=== PATIENT | male | born 1940 | race Hispanic/Latino ===

== ENCOUNTER 2018-10-05 11:14 | Inpatient (IN) | payer OTHER ==
[2018-10-05] MEDS ORDERED: MORPHINE 2 MG/ML SYR ONE (13:43)
[2018-10-05] MEDS ORDERED: ONDANSETRON 4 MG/2 ML VIAL ONE ×2 (13:43→15:36)
[2018-10-05] MEDS ORDERED: NA CHLORIDE 0.9% 500 ML ONE (13:43)
[2018-10-05 13:53] LABS: Absolute Lymphocytes (CBC) 1.1 K/uL (0.7-4.9); Absolute Monocytes 0.9 K/uL (0.1-1.3); Absolute Neutrophil 5.5 K/uL (1.8-8.0); Basophils % 0.4 % (0-1.3); Eosinophils % 3.5 % (0-4.4); Hematocrit 41.4 % (39.6-49.0); Lymphocytes % 14.4 % (15.3-44.8); MPV 8.8 fL (7.6-11.3); Monocytes % 11.5 % (3.3-12.3); RBC Red Blood Cell Count 4.81 M/uL (4.33-5.43)
[2018-10-05 14:11] LABS: Albumin 3.5 g/dL (3.4-5.0); Bilirubin Direct 0.2 mg/dL (0-0.2); Bilirubin Total 0.5 mg/dL (0.2-1.0); Magnesium 2.3 mg/dL (1.8-2.4); Potassium 4.4 mmol/L (3.5-5.1); Protein, Total 7.4 g/dL (6.4-8.2)
[2018-10-05 14:12] LABS: Urine Bacteria <20 /HPF (NONE SEEN); Urine RBC <5 /HPF (NONE SEEN)
[2018-10-05 14:13] LABS: Urine Culture Reflex Order NOT NEEDED
[2018-10-05 14:32] LABS: Urine Blood NEGATIVE (NEG); Urine Glucose NEGATIVE (NEG); Urine Protein NEGATIVE (NEG); Urine Specific Gravity 1.015 (1.005-1.030)
[2018-10-05] MEDS ORDERED: MORPHINE 4 MG/ML SYR ONE ×2 (15:36→19:28)
--- NOTE | 2018-10-05 16:15 | RAD REPORT ---
EXAM DESCRIPTION: CTAbdomen Pelvis W Contrast - 10/05/2018 3:49 pm CLINICAL HISTORY: Abdominal pain. LLQ abdomen pain COMPARISON: CT ABD PELVIS W CONTRAST dated 12/05/2014; Abdomen Pelvis W/Wo Contrast dated 07/06/2016; Multiplanar Reconstruction dated 07/06/2016 TECHNIQUE: Biphasic CT imaging of the abdomen and pelvis was performed with 100 ml non-ionic IV cont rast. All CT scans are performed using dose optimization technique as appropriate and may include automated exposure control or mA/KV adjustment according to patient size. FINDINGS: The lung bases are clear. Diffuse low-density lesions are seen throughout the liver parenchyma most compatible with liver metas tatic disease. No intrahepatic or extrahepatic biliary tree dilatation seen. The spleen, adrenal glands, pancreas are within normal limits. Mild hydronephrosis of both kidneys se en with a urinary diversion present in right abdominal urostomy. Very advanced pattern of diverticulosis affects the rectosigmoid colon. Several small pericolonic sof t tissue lesions are present in the left lower quadrant the largest measuring 9 mm. These may represe nt a pericolonic lymph nodes. No diverticulitis is seen. Moderate fecal retention in the colon is pre sent. The appendix is normal. No suspicious bony findings. IMPRESSION: Diffuse metastatic disease to the liver is present. A few small pericolonic lymph nodes are also present in the left lower quadrant adjacent to the sigmoid colon where very advanced diverti culosis is present. Followup colonoscopy would be suggested to better assess this region of the colon . Mild hydronephrosis bilaterally with urinary diversion seen.
[2018-10-05] MEDS ORDERED: METRONIDAZOLE 500mg IVPB 500 MG/100 ML BAG IV ONE (17:25)
--- NOTE | 2018-10-05 19:27 | EDPHYS ---
Physician Documentation [facility] Name: Milan Sutton Age: 78 yrs Sex: Male : 1940 Arrival Date: 10/05/2018 Time: 11:15 Bed 23 Private MD: Pk Manning T ED Physician Scott Bro HPI: 10/05 13:25 This 78 yrs old Male presents to ER via Ambulatory with complaints of cp Abdominal Pain. 13:25 The patient presents with abdominal pain in the left lower quadrant. Onset: The cp symptoms/episode began/occurred 3 week(s) ago. The symptoms do not radiate. Associated signs and symptoms: Pertinent positives: constipation, nausea, Pertinent negatives: chest pain, diarrhea, dysuria, fever, shortness of breath, testicular pain, vomiting. The symptoms are described as waxing/waning. The patient has been recently seen by a physician: the patient's primary care provider, with similar presenting complaints, was given a prescription for antibiotics. Historical: - Allergies: 11:47 No Known Allergies; aa5 - Home Meds: 11:47 Bystolic 5 mg oral tab 1 tab once daily [Active]; Cefuroxime Oral 500 mg twice a day aa5 [Active]; losartan 100 mg oral tab 1 tab once daily [Active]; pravastatin 40 mg oral tab once daily [Active]; quetiapine 25 mg oral tab at bedtime [Active]; aspirin 81 mg Oral chew 1 tab once daily [Active]; - PMHx: 11:47 Hyperlipidemia; Hypertension; Cancer; aa5 - PSHx: 11:43 Hernia repair; aa5 11:47 Bladder and prostate removed; Urostomy; aa5 - Immunization history:: Adult Immunizations unknown. - Social history:: Smoking status: Patient/guardian denies using tobacco. - Ebola Screening: : No symptoms or risks identified at this time. ROS: 13:30 Constitutional: Negative for body aches, chills, fever, poor PO intake. cp 13:30 Eyes: Negative for injury, pain, redness, and discharge. cp 13:30 ENT: Negative for drainage from ear(s), ear pain, sore throat, difficulty swallowing, difficulty handling secretions. 13:30 Cardiovascular: Negative for chest pain, edema, palpitations. 13:30 Respiratory: Negative for cough, shortness of breath, wheezing. 13:30 Abdomen/GI: Positive for abdominal pain, nausea, Negative for vomiting, diarrhea, constipation, anorexia, black/tarry stool, rectal bleeding. 13:30 Back: Negative for pain at rest, pain with movement, radiated pain. 13:30 : Negative for hematuria, testicular pain 13:30 Skin: Negative for cellulitis, rash. 13:30 Neuro: Negative for altered mental status, headache, weakness. 13:30 All other systems are negative. Exam: 13:40 Constitutional: The patient appears in no acute distress, alert, awake, cp non-diaphoretic, non-toxic, well developed, well nourished, uncomfortable. 13:40 Head/Face: Normocephalic, atraumatic. cp 13:40 Eyes: Periorbital structures: appear normal, Conjunctiva: normal, no exudate, no injection, Sclera: no appreciated abnormality, Lids and lashes: appear normal, bilaterally. 13:40 ENT: External ear(s): are unremarkable, Nose: is normal, Mouth: Lips: moist, Oral mucosa: pink and intact, moist, Posterior pharynx: is normal, airway is patent, no erythema, no exudate. 13:40 Neck: ROM/movement: is normal, is supple, without pain, no range of motions limitations, no meningismus, no nuchal rigidity. 13:40 Chest/axilla: Inspection: normal, Palpation: is normal, no crepitus, no tenderness. 13:40 Cardiovascular: Rate: normal, Rhythm: regular, Edema: is not appreciated, JVD: is not appreciated. 13:40 Respiratory: the patient does not display signs of respiratory distress, Respirations: normal, no use of accessory muscles, no retractions, no splinting, no tachypnea, labored breathing, is not present, Breath sounds: are clear throughout, no decreased breath sounds, no stridor, no wheezing. 13:40 Abdomen/GI: Inspection: abdomen appears normal, Bowel sounds: active, all quadrants, Palpation: soft, in all quadrants, moderate abdominal tenderness, in the left lower quadrant, rebound tenderness, is not appreciated, voluntary guarding, is not appreciated, involuntary guarding, is not appreciated. 13:40 Back: pain, is absent, ROM is normal. 13:40 Skin: cellulitis, is not appreciated, no rash present. 13:40 Neuro: Orientation: to person, place \T\ time. Mentation: is normal, Cerebellar function: is grossly normal, Motor: moves all fours, strength is normal, Sensation: is normal. Vital Signs: 11:48 BP 167 / 77; Pulse 56; Resp 16 S; Temp 98.8(O); Pulse Ox 97% on R/A; Weight 81.65 kg aa5 (R); Height 5 ft. 11 in. (180.34 cm) (R); Pain 3/10; 13:00 BP 193 / 89; Pulse 60; Resp 18; Pulse Ox 97% on R/A; aj1 14:00 BP 189 / 82; Pulse 59; Resp 18; Pulse Ox 98% on R/A; aj1 15:02 BP 185 / 74; Pulse 56; Resp 18; Pulse Ox 96% on R/A; aj1 16:03 BP 184 / 79; Pulse 65; Resp 18; Pulse Ox 96% on R/A; aj1 17:05 BP 174 / 79; Pulse 63; Resp 18; Pulse Ox 97% on R/A; aj1 18:08 BP 164 / 79; Pulse 66; Resp 18; Pulse Ox 97% on R/A; aj1 20:06 BP 168 / 65; Pulse 65; Resp 18; Pulse Ox 97% on R/A; aj1 22:03 BP 164 / 58; Pulse 72; Resp 20; Pulse Ox 97% on R/A; aj1 11:48 Body Mass Index 25.10 (81.65 kg, 180.34 cm) aa5 MDM: 12:59 Patient medically screened. cp 17:10 Physician consultation: Juany Mcarthur MD was contacted at 17:05, regarding admission, cp to the medical/surgical unit. patient's condition, would like further tests performed, procalcitonin and CRp level before considering admission. 17:10 Response to treatment: the patient's symptoms have mildly improved after treatment. cp 19:30 Data reviewed: vital signs, nurses notes. cp 10/05 13:17 Order name: Basic Metabolic Panel; Complete Time: 15:25 cp 10/05 15:25 Interpretation: Normal except: GFR 77. cp 10/05 13:17 Order name: CBC with Diff; Complete Time: 15:25 cp 10/05 13:17 Order name: Creatinine for Radiology; Complete Time: 15:25 cp 10/05 13:17 Order name: Hepatic Function; Complete Time: 15:25 cp 10/05 13:17 Order name: Lipase; Complete Time: 15:25 cp 10/05 13:17 Order name: Urine Microscopic Only; Complete Time: 15:25 cp 10/05 13:17 Order name: Magnesium; Complete Time: 15:25 cp 10/05 13:28 Order name: CT Abd/Pelvis - W/Contrast: give oral contrast; Complete Time: 16:21 cp 10/05 13:59 Order name: Urine Dipstick--Ancillary (enter results); Complete Time: 15:25 eb 10/05 17:07 Order name: Procalcitonin; Complete Time: 19:29 cp 10/05 19:29 Interpretation: Reviewed. cp 10/05 17:07 Order name: CRP; Complete Time: 19:22 cp 10/05 19:22 Interpretation: Abnormal: C-REACTIVE PROT 31.30. cp 10/05 20:41 Order name: Lipase EDMS 10/05 20:41 Order name: Lipase EDMS 10/05 13:17 Order name: IV Saline Lock; Complete Time: 13:48 cp 10/05 13:17 Order name: Labs collected and sent; Complete Time: 13:48 cp 10/05 13:17 Order name: Urine Dipstick-Ancillary (obtain specimen); Complete Time: 13:53 cp 10/05 20:40 Order name: NPO EDMS Administered Medications: 13:48 Drug: NS 0.9% 500 ml Route: IV; Rate: bolus; Site: right antecubital; aj1 14:30 Follow up: IV Status: Completed infusion; IV Intake: 500ml aj1 13:48 Drug: morphine 2 mg Route: IVP; Site: right antecubital; aj1 14:30 Follow up: Response: No adverse reaction aj1 13:48 Drug: Zofran 4 mg Route: IVP; Site: right antecubital; aj1 14:30 Follow up: Response: No adverse reaction aj1 17:25 Drug: metroNIDAZOLE 500 mg Volume: 100 ml; Route: IVPB; Infused Over: 30 mins; Site: mg2 right antecubital; 19:52 Follow up: IV Status: Completed infusion; IV Intake: 100ml aj1 19:31 Drug: morphine 4 mg Route: IVP; Site: right antecubital; aj1 22:05 Follow up: Response: No adverse reaction [facility] 19:52 Drug: Cipro 400 mg Volume: 200 ml; Route: IVPB; Infused Over: 60 mins; Site: left aj1 antecubital; 22:04 Follow up: IV Status: Completed infusion; IV Intake: 200ml aj Disposition: 10/06 09:21 Co-signature as Attending Physician, Scott Bro MD I agree with the assessment and carley plan of care. Disposition: 10/05/18 19:26 Hospitalization ordered by Rm Mast for Observation. Preliminary diagnosis are Lower abdominal pain, unspecified, Diverticulosis of large intestine without perforation or abscess without bleeding. - Bed requested for Telemetry/MedSurg (observation). - Status is Observation. aj1 - Condition is Stable. - Problem is an ongoing problem. - Symptoms have improved. UTI on Admission? No Signatures: Dispatcher [employer] EDPhuong Hermosillo RN RN aj1 Sarina Catalan RN RN mw Anderson, Corey, MD MD cha Calderon, Audri RN RN aa5 Scott May PA PA cp Gardose, Michele, RN RN mg2 Corrections: (The following items were deleted from the chart) 10/05 20:52 19:26 Hospitalization Ordered by Rm Mast MD for Observation. Preliminary diagnosis is Lower abdominal pain, unspecified; Diverticulosis of large intestine without perforation or abscess without bleeding. Bed requested for Telemetry/MedSurg (observation). Status is Observation. Condition is Stable. Problem is an ongoing problem. Symptoms have improved. UTI on Admission? No. cp 22:49 20:52 10/05/2018 19:26 Hospitalization Ordered by Rm Mast MD for Observation. aj1 Preliminary diagnosis is Lower abdominal pain, unspecified; Diverticulosis of large intestine without perforation or abscess without bleeding. Bed requested for Telemetry/MedSurg (observation). Status is Observation. Condition is Stable. Problem is an ongoing problem. Symptoms have improved. UTI on Admission? No. mw
--- NOTE | 2018-10-05 19:27 | ER ---
Nurse's Notes [facility] Name: Milan Sutton Age: 78 yrs Sex: Male : 1940 Arrival Date: 10/05/2018 Time: 11:15 Bed 23 Private MD: Pk Manning T Diagnosis: Lower abdominal pain, unspecified;Diverticulosis of large intestine without perforation or abscess without bleeding Presentation: 10/05 11:42 Presenting complaint: Patient states: LLQ pain that began x 2 weeks ago. Pt states "I aa5 went to go see Dr. Manning and he gave me antibiotics but it's not helping". Pt states feeling bloated. Transition of care: patient was not received from another setting of care. Onset of symptoms was September 2018. Risk Assessment: Do you want to hurt yourself or someone else? Patient reports no desire to harm self or others. Initial Sepsis Screen: Does the patient meet any 2 criteria? No. Patient's initial sepsis screen is negative. Does the patient have a suspected source of infection? No. Patient's initial sepsis screen is negative. Care prior to arrival: None. 11:42 Method Of Arrival: Ambulatory aa5 11:42 Acuity: DEBRA 3 aa5 Historical: - Allergies: 11:47 No Known Allergies; aa5 - Home Meds: 11:47 Bystolic 5 mg oral tab 1 tab once daily [Active]; Cefuroxime Oral 500 mg twice a day aa5 [Active]; losartan 100 mg oral tab 1 tab once daily [Active]; pravastatin 40 mg oral tab once daily [Active]; quetiapine 25 mg oral tab at bedtime [Active]; aspirin 81 mg Oral chew 1 tab once daily [Active]; - PMHx: 11:47 Hyperlipidemia; Hypertension; Cancer; aa5 - PSHx: 11:43 Hernia repair; aa5 11:47 Bladder and prostate removed; Urostomy; aa5 - Immunization history:: Adult Immunizations unknown. - Social history:: Smoking status: Patient/guardian denies using tobacco. - Ebola Screening: : No symptoms or risks identified at this time. Screenin:00 Abuse screen: Denies threats or abuse. Denies injuries from another. Nutritional aj1 screening: No deficits noted. Tuberculosis screening: No symptoms or risk factors identified. 22:04 Fall Risk No fall in past 12 months (0 pts). No secondary diagnosis (0 pts). IV access aj1 (20 points). Ambulatory Aid- None/Bed Rest/Nurse Assist (0 pts). Gait- Normal/Bed Rest/Wheelchair (0 pts) Mental Status- Oriented to own ability (0 pts). Total Sanchez Fall Scale indicates No Risk (0-24 pts). Assessment: 13:00 General: Appears in no apparent distress. comfortable, Behavior is calm, cooperative, aj1 appropriate for age. Pain: Complains of pain in left inguinal area Pain does not radiate. Pain currently is 3 out of 10 on a pain scale. Pain began 2 weeks ago. Neuro: Level of Consciousness is awake, alert, obeys commands, Speech is normal. Cardiovascular: Patient's skin is warm and dry. Respiratory: Airway is patent Respiratory effort is even, unlabored, Respiratory pattern is regular, symmetrical. GI: Abdomen is flat, non-distended, Bowel sounds present X 4 quads. Abd is soft and non tender X 4 quads. : Denies burning with urination, urinary frequency. EENT: No signs and/or symptoms were reported regarding the EENT system. Derm: No signs and/or symptoms reported regarding the dermatologic system. Skin is pink, warm \\T\\ dry. normal. Musculoskeletal: No signs and/or symptoms reported regarding the musculoskeletal system. Circulation, motion, and sensation intact. 14:05 Reassessment: Patient appears in no apparent distress at this time. No changes from aj1 previously documented assessment. Patient and/or family updated on plan of care and expected duration. Pain level reassessed. Patient is alert, oriented x 3, equal unlabored respirations, skin warm/dry/pink. 15:02 Reassessment: Patient appears in no apparent distress at this time. No changes from aj1 previously documented assessment. Patient and/or family updated on plan of care and expected duration. Pain level reassessed. Patient is alert, oriented x 3, equal unlabored respirations, skin warm/dry/pink. 16:03 Reassessment: Patient appears in no apparent distress at this time. No changes from aj1 previously documented assessment. Patient and/or family updated on plan of care and expected duration. Pain level reassessed. Patient is alert, oriented x 3, equal unlabored respirations, skin warm/dry/pink. 17:05 Reassessment: Patient appears in no apparent distress at this time. No changes from aj1 previously documented assessment. Patient and/or family updated on plan of care and expected duration. Pain level reassessed. Patient is alert, oriented x 3, equal unlabored respirations, skin warm/dry/pink. 18:08 Reassessment: Patient appears in no apparent distress at this time. No changes from aj1 previously documented assessment. Patient and/or family updated on plan of care and expected duration. Pain level reassessed. Patient is alert, oriented x 3, equal unlabored respirations, skin warm/dry/pink. 19:10 Reassessment: Patient appears in no apparent distress at this time. No changes from aj1 previously documented assessment. Patient and/or family updated on plan of care and expected duration. Pain level reassessed. Patient is alert, oriented x 3, equal unlabored respirations, skin warm/dry/pink. 20:06 Reassessment: Patient appears in no apparent distress at this time. No changes from aj1 previously documented assessment. Patient and/or family updated on plan of care and expected duration. Pain level reassessed. Patient is alert, oriented x 3, equal unlabored respirations, skin warm/dry/pink. 21:00 Reassessment: Patient appears in no apparent distress at this time. No changes from aj1 previously documented assessment. Patient and/or family updated on plan of care and expected duration. Pain level reassessed. Patient is alert, oriented x 3, equal unlabored respirations, skin warm/dry/pink. 22:03 Reassessment: Patient appears in no apparent distress at this time. No changes from aj1 previously documented assessment. Patient and/or family updated on plan of care and expected duration. Pain level reassessed. Patient is alert, oriented x 3, equal unlabored respirations, skin warm/dry/pink. Vital Signs: 11:48 BP 167 / 77; Pulse 56; Resp 16 S; Temp 98.8(O); Pulse Ox 97% on R/A; Weight 81.65 kg aa5 (R); Height 5 ft. 11 in. (180.34 cm) (R); Pain 3/10; 13:00 BP 193 / 89; Pulse 60; Resp 18; Pulse Ox 97% on R/A; aj1 14:00 BP 189 / 82; Pulse 59; Resp 18; Pulse Ox 98% on R/A; aj1 15:02 BP 185 / 74; Pulse 56; Resp 18; Pulse Ox 96% on R/A; aj1 16:03 BP 184 / 79; Pulse 65; Resp 18; Pulse Ox 96% on R/A; aj1 17:05 BP 174 / 79; Pulse 63; Resp 18; Pulse Ox 97% on R/A; aj1 18:08 BP 164 / 79; Pulse 66; Resp 18; Pulse Ox 97% on R/A; aj1 20:06 BP 168 / 65; Pulse 65; Resp 18; Pulse Ox 97% on R/A; aj1 22:03 BP 164 / 58; Pulse 72; Resp 20; Pulse Ox 97% on R/A; aj1 11:48 Body Mass Index 25.10 (81.65 kg, 180.34 cm) aa5 ED Course: 11:15 Patient arrived in ED. rg4 11:16 Pk Manning MD is Private Physician. rg4 11:42 Arm band placed on. aa5 11:43 Triage completed. aa5 12:59 Scott May PA is PHCP. cp 12:59 Scott Bro MD is Attending Physician. cp 13:00 Patient has correct armband on for positive identification. Bed in low position. Call aj1 light in reach. Side rails up X 1. 13:00 No provider procedures requiring assistance completed. aj1 13:02 Phuong Crane, DAMON is Primary Nurse. aj1 15:49 CT completed. Patient tolerated procedure well. Patient moved back from CT. mw3 15:50 CT Abd/Pelvis - W/Contrast: give oral contrast In Process Unspecified. EDMS 19:26 Rm Mast MD is Hospitalizing Provider. cp 22:04 Patient admitted, IV remains in place. aj1 22:48 Report given to DAMON Huffman on 4th floor. aj1 Administered Medications: 13:48 Drug: NS 0.9% 500 ml Route: IV; Rate: bolus; Site: right antecubital; aj1 14:30 Follow up: IV Status: Completed infusion; IV Intake: 500ml aj1 13:48 Drug: morphine 2 mg Route: IVP; Site: right antecubital; aj1 14:30 Follow up: Response: No adverse reaction aj1 13:48 Drug: Zofran 4 mg Route: IVP; Site: right antecubital; aj1 14:30 Follow up: Response: No adverse reaction aj1 17:25 Drug: metroNIDAZOLE 500 mg Volume: 100 ml; Route: IVPB; Infused Over: 30 mins; Site: mg2 right antecubital; 19:52 Follow up: IV Status: Completed infusion; IV Intake: 100ml aj1 19:31 Drug: morphine 4 mg Route: IVP; Site: right antecubital; aj1 22:05 Follow up: Response: No adverse reaction aj1 19:52 Drug: Cipro 400 mg Volume: 200 ml; Route: IVPB; Infused Over: 60 mins; Site: left aj1 antecubital; 22:04 Follow up: IV Status: Completed infusion; IV Intake: 200ml aj1 Intake: 14:30 IV: 500ml; Total: 500ml. aj1 19:52 IV: 100ml; Total: 600ml. aj1 22:04 IV: 200ml; Total: 800ml. aj1 Outcome: 19:26 Decision to Hospitalize by Provider. cp 22:48 Admitted to Tele accompanied by tech, via wheelchair, with chart. aj1 22:48 Condition: stable 22:48 Discharge instructions given to patient, family, Instructed on the need for admit, Demonstrated understanding of instructions. 22:49 Patient left the ED. aj1 Signatures: Dispatcher [employer] Phuong Villavicencio RN RN aj1 Debra Wilkes RN RN aa5 Scott May PA PA cp Garcia, Rubi rg4 Grant Perez RN RN mg2 Michelle Briggs mw3
[2018-10-05] MEDS ORDERED: CIPROFLOXACIN 400mg IV 400 MG/200 ML BAG IV ONE (19:43)
[2018-10-05] MEDS ORDERED: ALPRAZOLAM 0.25 MG TABLET PO PRN (20:36)
[2018-10-05] MEDS ORDERED: MAGNESIUM HYDROXIDE 8% 30 ML PO PRN (20:36)
[2018-10-05] MEDS ORDERED: ONDANSETRON 4 MG/2 ML VIAL IV PRN (20:36)
[2018-10-05] MEDS ORDERED: ACETAMINOPHEN 500 MG TAB PO PRN (20:36)
[2018-10-05 23:32] VITALS: BMI 25.1
[2018-10-05] MEDS: NA CHLORIDE 0.9% 1,000 ML IV SCH (23:34)
[2018-10-06] MEDS ORDERED: MORPHINE 4 MG/ML SYR IV PRN (00:09)
[2018-10-06 06:24] LABS: Absolute Neutrophil 5.4 K/uL (1.8-8.0); Basophils % 0.2 % (0-1.3); Eosinophils % 4.5 % (0-4.4); Hematocrit 38.6 % (39.6-49.0); Lymphocytes % 12.7 % (15.3-44.8); MPV 8.9 fL (7.6-11.3); Monocytes % 13.2 % (3.3-12.3); RBC Red Blood Cell Count 4.45 M/uL (4.33-5.43)
[2018-10-06 06:39] LABS: Bilirubin Total 0.8 mg/dL (0.2-1.0); Magnesium 2.1 mg/dL (1.8-2.4); Phosphorus 3.5 mg/dL (2.5-4.9); Potassium 4.4 mmol/L (3.5-5.1); Protein, Total 6.4 g/dL (6.4-8.2)
--- NOTE | 2018-10-06 08:52 | P.HP ---
Certification for Inpatient Patient admitted to: Observation With expected LOS: <2 Midnights Patient will require the following post-hospital care: None Practitioner: I am a practitioner with admitting privileges, knowledge of patient current condition, hospital course, and medical plan of care. Services: Services provided to patient in accordance with Admission requirements found in Title 42 Section 412.3 of the Code of Federal Regulations Patient History Date of Service: 10/05/18 Reason for admission: left lower quadrant abdominal pain History of Present Illness: Patient is a 78-year-old gentleman who came to the hospital with abdominal pain in his left lower quadrant. I have known Mr. Sutton very well and he normally does not complain even though he has an ileostomy and has had treatment for bladder cancer. However, he states that the pain has been worsening over the last couple of weeks. He has even been on oral antibiotic therapy. This has not alleviated his symptoms. He came into the hospital for further evaluation. in the emergency room, he did have a CT of his abdomen performed. This did not reveal the etiology of the left lower quadrant pain. However, it did reveal that he possibly has metastasis to the liver. The primary is unknown but is suspected to be bladder cancer. He may also have metastatic colon cancer. He did have some fecal retention and there is an area of his colon that the Radiologist who read the CT scan is wanting better evaluated. will get his pain better controlled and this may be able to be done as an outpatient. He may also benefit from a laxative as he had moderate fecal retention. Allergies No Known Drug Allergies Allergy (Verified 10/05/18 23:35) Unknown Home Medications: Nebivolol HCl [Bystolic*] 5 mg PO DAILY 12/05/14 Aspirin [Aspirin EC 81 MG] 81 mg PO DAILY 10/06/18 Cefuroxime Axetil [Cefuroxime] 500 mg PO BID 10/06/18 Losartan Potassium 100 mg PO DAILY 10/06/18 Pravastatin Sodium 40 mg PO DAILY 10/06/18 Quetiapine [Seroquel*] 25 mg PO BEDTIME 10/06/18 - Past Medical/Surgical History Has patient received pneumonia vaccine in the past: No Diabetic: No -: HTN -: HYPERLIPIDEMIA -: DOUBLE HERNIA REPAIR 40 YRS AGO -: Prostatectomy - October 2016 -: Bladder removal/Khan pouch - Family History Mother Medical History: GI disease - Social History Smoking Status: Former smoker Alcohol use: No CD- Drugs: No Caffeine use: Yes Place of Residence: Home Review of Systems 10-point ROS is otherwise unremarkable Physical Examination - Vital Signs Temperature: 98.4 F Blood Pressure: 147/65 Pulse: 62 Respirations: 18 Pulse Ox (%): 92 - Physical Exam General: Alert, In no apparent distress, Oriented x3 HEENT: Atraumatic, PERRLA, Mucous membr. moist/pink, EOMI, Sclerae nonicteric Neck: Supple, 2+ carotid pulse no bruit, No LAD, Without JVD or thyroid abnormality Respiratory: Clear to auscultation bilaterally, Normal air movement Cardiovascular: Regular rate/rhythm, Normal S1 S2 Gastrointestinal: Normal bowel sounds, Soft and benign, Tenderness ( Left lower quadrant) Musculoskeletal: No clubbing, No swelling, No tenderness Integumentary: No rashes Neurological: Normal gait, Normal speech, Normal strength at 5/5 x4 extr, Normal tone, Sensation intact, Cranial nerves 3-12 intact, Normal affect Lymphatics: No axilla or inguinal lymphadenopathy - Studies Laboratory Data (last 24 hrs) 10/05/18 13:45: Creatinine 0.94 10/05/18 13:45: WBC 7.9, Hgb 13.7, Hct 41.4, Plt Count 235 10/05/18 13:45: Sodium 141, Potassium 4.4, BUN 15, Creatinine 0.94, Glucose 86, Magnesium 2.3, Total Bilirubin 0.5, AST 208 H, ALT 122 H, Alkaline Phosphatase 248 H, Lipase 66 L Assessment & Plan - Problems (Diagnosis) (1) Abdominal pain Current Visit: Yes Status: Acute (2) Left lower quadrant abdominal tenderness Current Visit: Yes Status: Acute (3) History of bladder cancer Current Visit: Yes Status: Acute (4) Hepatic metastasis Current Visit: Yes Status: Acute (5) Elevated liver enzymes Current Visit: Yes Status: Acute (6) Fecal retention Current Visit: Yes Status: Acute (7) High risk for colon cancer Current Visit: Yes Status: Acute - Plan Plan: 1. IV fluids and IV antibiotics 2. Stool studies; check alpha fetoprotein level and CEA 3. GI consultation which may be able to be done as an outpatient 4. Pain control 5. Outpatient versus inpatient colonoscopy depending on symptoms 6. Repeat abdominal film if pain worsens 7. GI and DVT prophylaxis Discharge Plan: Home Plan to discharge in: 48 Hours - Advance Directives Does patient have a Living Will: Yes Does patient have a Durable POA for Healthcare: Yes - Code Status/Comfort Care Code Status Assessed: Yes Code Status: Full Code Critical Care: No Time Spent Managing PTS Care (In Minutes): 44
[2018-10-06] MEDS ORDERED: DOCUSATE NA 100 MG CAP PO ONE (09:36)
[2018-10-06] MEDS: ENOXAPARIN 40 MG/0.4 ML SQ SCH (09:46)
[2018-10-06] MEDS: NA CHLORIDE 0.9% 1,000 ML IV SCH ×2 (09:57→23:40)
--- NOTE | 2018-10-06 11:34 | P.PN ---
Subjective Date of Service: 10/06/18 Chief Complaint: left lower quadrant abdominal pain Patient seen and examined at bedside with RN. Chart reviewed. Case discussed with patient at bedside. Currently patient has no complaints to offer overnight. This morning still complains of having left lower quadrant pain. Denies having any fever chills nausea vomiting overnight. Review of Systems 10-point ROS is otherwise unremarkable Physical Examination - Vital Signs Temperature: 98.6 F Blood Pressure: 147/65 Pulse: 62 Respirations: 18 Pulse Ox (%): 92 - Physical Exam General: Alert, In no apparent distress HEENT: Atraumatic, PERRLA, EOMI Neck: Supple, JVD not distended Respiratory: Clear to auscultation bilaterally, Normal air movement Cardiovascular: Regular rate/rhythm, Normal S1 S2 Gastrointestinal: Normal bowel sounds, Tenderness (Left lower quadrant) Musculoskeletal: No tenderness Integumentary: No rashes Neurological: Normal speech, Normal tone, Normal affect Lymphatics: No axilla or inguinal lymphadenopathy Urinary: Suprapubic catheter - Studies Laboratory Data (last 24 hrs) 10/05/18 13:45: Creatinine 0.94 10/05/18 13:45: WBC 7.9, Hgb 13.7, Hct 41.4, Plt Count 235 10/05/18 13:45: Sodium 141, Potassium 4.4, BUN 15, Creatinine 0.94, Glucose 86, Magnesium 2.3, Total Bilirubin 0.5, AST 208 H, ALT 122 H, Alkaline Phosphatase 248 H, Lipase 66 L Medications List Reviewed: Yes Assessment And Plan - Current Problems (Diagnosis) (1) Left lower quadrant abdominal tenderness Onset Date: 10/06/18 Current Visit: Yes Status: Acute Plan: Patient with left lower quadrant pain. Abdominal CT consistent with severe diverticulosis along with lymph node swelling. CRP elevated at this time. -most likely secondary to severe diverticulosis versus metastasis disease. -continue on IV ciprofloxacin and Flagyl at this time -will monitor for next 24-48 hr for improvement. -denies any diarrhea or nausea vomiting at this time Qualifiers: Presence of rebound: present Qualified Code(s): R10.824 - Left lower quadrant rebound abdominal tenderness (2) Elevated liver enzymes Onset Date: 10/06/18 Current Visit: Yes Status: Acute Plan: Elevated liver enzymes most likely secondary to liver mets versus acute illness -liver enzymes still elevated this a.m.. However trending down. -will observe for next 24 hr for improvement. (3) History of bladder cancer Onset Date: 10/06/18 Current Visit: Yes Status: Acute Plan: History of bladder cancer with metastasis to colon, liver, lymph nodes. Status post resection now with suprapubic catheter placement. -will monitor closely at this time. Patient is seen at [facility] for his cancer currently unable to obtain whether he has a chemotherapy or not. Patient is very poor historian as well. Discharge Plan: Home Plan to discharge in: 48 Hours - Code Status/Comfort Care Code Status Assessed: Yes Critical Care: No
[2018-10-06] MEDS: METRONIDAZOLE 500mg IVPB 500 MG/100 ML BAG IV SCH ×2 (13:27→18:23)
[2018-10-06] MEDS: CIPROFLOXACIN 400mg IV 400 MG/200 ML BAG IV SCH ×2 (13:32→21:36)
[2018-10-06] MEDS ORDERED: TRAMADOL HCL 50 MG TAB PO ONE ×2 (13:35→22:00)
[2018-10-06] MEDS: ATORVASTATIN 10 MG TAB PO SCH (21:15)
[2018-10-06] MEDS: QUETIAPINE 25 MG TAB PO SCH (21:17)
[2018-10-07] MEDS: METRONIDAZOLE 500mg IVPB 500 MG/100 ML BAG IV SCH ×4 (00:46→17:03)
[2018-10-07] MEDS: NA CHLORIDE 0.9% 1,000 ML IV SCH ×2 (02:15→17:03)
[2018-10-07] MEDS: ENOXAPARIN 40 MG/0.4 ML SQ SCH (08:36)
[2018-10-07] MEDS: NEBIVOLOL HCL 5 MG TAB PO SCH (08:36)
[2018-10-07] MEDS: LOSARTAN POTASSIUM 50 MG TABLET PO SCH (08:36)
[2018-10-07] MEDS: ASPIRIN EC 81 MG TAB PO SCH (08:36)
[2018-10-07] MEDS: TRAMADOL HCL 50 MG TAB PO PRN ×2 (08:37→20:13)
[2018-10-07] MEDS: CIPROFLOXACIN 400mg IV 400 MG/200 ML BAG IV SCH ×2 (08:45→21:00)
[2018-10-07] MEDS ORDERED: PNEUMOCOCCAL VACCINE 0.5 ML IMVAC ONE (14:00)
[2018-10-07] MEDS: ATORVASTATIN 10 MG TAB PO SCH (20:13)
[2018-10-07] MEDS: QUETIAPINE 25 MG TAB PO SCH (20:13)
[2018-10-07] MEDS ORDERED: HYDRALAZINE HCL 20 MG/ML VIAL IV PRN (21:08)
[2018-10-08] MEDS: NA CHLORIDE 0.9% 1,000 ML IV SCH ×2 (02:20→08:27)
[2018-10-08] MEDS: METRONIDAZOLE 500mg IVPB 500 MG/100 ML BAG IV SCH ×3 (06:00→12:00)
[2018-10-08 07:26] VITALS: O2SAT 93
[2018-10-08] MEDS: ASPIRIN EC 81 MG TAB PO SCH (08:26)
[2018-10-08] MEDS: NEBIVOLOL HCL 5 MG TAB PO SCH (08:26)
[2018-10-08] MEDS: ENOXAPARIN 40 MG/0.4 ML SQ SCH (08:26)
[2018-10-08] MEDS: CIPROFLOXACIN 400mg IV 400 MG/200 ML BAG IV SCH (08:26)
[2018-10-08] MEDS: LOSARTAN POTASSIUM 50 MG TABLET PO SCH (08:26)
[2018-10-08 14:13] VITALS: BP 160/70; TEMP 98.9
--- NOTE | 2018-10-08 17:18 | DS ---
Date of Discharge: 10/08/2018 Admitting Diagnoses: 1.Abdominal pain. 2.Left lower quadrant abdominal tenderness. 3.History of bladder cancer. 4.Hepatic metastases. 5.Elevated liver enzymes and fecal retention. Discharge Diagnoses: 1.Left lower quadrant abdominal pain. 2.Elevated liver enzymes, likely secondary to liver metastasis. 3.History of bladder cancer, status post resection, now with suprapubic catheter. 4.Essential hypertension. Hospital Course: The patient is a 78-year-old male, who comes in with abdominal pain in the left low er quadrant. The patient does have history of cancer with mets to the liver and lymph nodes. He has history of bladder cancer. He is being treated at [facility]. He recently had a bladder resection with suprapubic catheter placement. The patient's CT scan showed severe diverticulosis, which may b e the cause of his pain along with the liver lesions that were consistent with mets to the liver. Th e patient was started on a clear liquid diet. He did tolerate his diet. However, he was initially u nable to tolerate a GI soft diet. Therefore, he was made n.p.o. The patient was continued on antibi otics. He did eventually tolerate a soft diet and his pain improved significantly. The family was a t the bedside. The patient does have followup with oncologist at [facility] for his liver lesions a nd lymph nodes. The patient's nausea and vomiting resolved. He was able to tolerate his diet. He i s ambulating well. He was then cleared for discharge. The patient was then sent home in a stable co ndition. Activity: As tolerated. Medications: As per medication reconciliation list. Finish up course of antibiotics. Diet: [place]. Activity: Fall precautions. Followup: Follow up with PCP in 2 to 3 days. Follow up with oncologists at [facility] in 1 week. Return to the ER for worsening condition. Physical Examination: General: Awake, alert, oriented x3, elderly male, no acute distress. CV: S1, S2. Peripheral pulses present. Respiratory: Moving air well bilaterally. Abdomen: Soft, nontender, nondistended. Positive bowel sounds. Extremities: No clubbing, cyanosis, edema. Neurologic: Nonfocal. Code Status: Full. SA/MODL Voice ID: [id number] Report ID: [id number]
--- NOTE | 2018-10-08 17:18 | PN ---
Date of Progress Note: 10/08/2018 Subjective: The patient seen and examined, chart reviewed and case discussed with RN. The patient w as discharged yesterday, however, the family brought out concerns regarding transfer to [facility] s tating that there was a request faxed by his oncologist, however, no fax was received. The patient d id not have any further vomiting, however, GI series was scheduled for this morning. At this point, the patient has refused to do the small bowel series and wants to be discharged. He wants to follow up with his oncologist at [facility]. The patient has been able to tolerate a GI soft diet. Medications: List reviewed. Objective: Vital Signs: Temperature 99.3, heart rate 70, blood pressure 178/77, respirations 18, O2 94% on room air. General: Awake, alert, oriented x3, not in any acute distress. Elderly male. CV: S1, S2. Peripheral pulses present. Respiratory: Moving air well bilaterally. Abdomen: Soft, nontender, nondistended. Positive bowel sounds. Extremities: No clubbing, cyanosis, edema. Neurologic: Nonfocal. Assessment: A 78-year-old male with: 1.Left lower quadrant abdominal tenderness. May be developing diverticulitis secondary to severe di verticulosis, on intravenous antibiotics, improved. 2.Elevated liver enzymes, trending down, likely related to his liver metastasis. 3.History of bladder cancer with metastasis to the liver. Plan: Discharge home. The patient to follow up with oncologist at [facility] for further workup of liver metastasis. /JOIE Voice ID: [id number] Report ID: [id number]
== END 2018-10-08 12:40 | disposition home or self-care (01) | DRG 392 ==
LOC: ER 11:14 → ERHOLD 20:52 → 4TH 22:21 → OBSVTOIN 10-08 10:59
PROVIDERS: ADMIT Hospitalist; ATTEND Family Medicine
DX: K57.30 Diverticulosis of large intestine without perforation or abscess without bleeding (principal); C78.7 Secondary malignant neoplasm of liver and intrahepatic bile duct; C77.9 Secondary and unspecified malignant neoplasm of lymph node, unspecified; I10 Essential (primary) hypertension; Z87.891 Personal history of nicotine dependence; Z93.2 Ileostomy status; K59.00 Constipation, unspecified; Z85.51 Personal history of malignant neoplasm of bladder; R94.5 Abnormal results of liver function studies
CPT/HCPCS: 36415; 74177; 80048; 80053; 80076; 81003; 81015; 83690; 83735; 84100; 84145; 85025; 86140; 99285; G0378; J0360; J0744; J1650; J2270; J2405; J7030; Q9967